=== PATIENT | male | born 1965 | race Caucasian/White ===

== ENCOUNTER 2018-08-03 07:39 | Emergency (ER) | payer OTHER ==
[2018-08-03] MEDS ORDERED: Oseltamivir 75 MG Cap ONE (08:28)
--- NOTE | 2018-08-03 08:42 | EDM.PDOC ---
ED HPI GENERAL MEDICAL PROBLEM - General Stated Complaint: INFLUENZA Time Seen by Provider: 08/03/18 08:00 Source of Information: Reports: Patient History Limitations: Reports: No Limitations - History of Present Illness INITIAL COMMENTS - FREE TEXT/NARRATIVE: According to patient he has been having severe bodyache since yesterday asso with mild nasal congestion. No fever or chills. Mild cough, no productive sputum.No wheezing or shortness of breath. No nausea or vomiting. Pt's was diagnosed with influenza B last Sunday and hence here in the emergency room to have it checked. No other complaints. Onset: Gradual Onset Date: 08/02/18 Duration: Other (unchanged) Location: Reports: Generalized Quality: Reports: Ache Improves with: Reports: None Worsens with: Reports: None Associated Symptoms: Denies: Confusion, Chest Pain, Cough, Diaphoresis, Fever/ Chills, Headaches, Loss of Appetite, Nausea/Vomiting, Rash, Seizure, Shortness of Breath, Syncope, Weakness - Related Data Allergies Allergy/AdvReac Type Severity Reaction Status Date / Time No Known Allergies Allergy Verified 08/03/18 07:55 Home Meds: Home Meds Meloxicam 15 mg PO DAILY 08/03/18 [History] Omeprazole 20 mg PO DAILY 08/03/18 [History] Past Medical History Gastrointestinal History: Reports: GERD Musculoskeletal History: Reports: Back Pain, Chronic, Fracture Neurological History: Reports: Concussion, Headaches, Chronic, Head Trauma - Past Surgical History GI Surgical History: Reports: Hernia Repair/Other Other Musculoskeletal Surgeries/Procedures:: 5 years ago tree fell on him, creating 3 vertibre mid back compression Fxm, shoulder blade and 5 ribs with concussion. Social & Family History - Family History Family Medical History: Noncontributory ED ROS GENERAL - Review of Systems Review Of Systems: See Below Constitutional: Reports: Malaise. Denies: Fever, Chills HEENT: Reports: Rhinitis. Denies: Ear Pain, Throat Pain, Throat Swelling Respiratory: Reports: Cough. Denies: Shortness of Breath, Wheezing, Pleuritic Chest Pain, Sputum Cardiovascular: Denies: Chest Pain, Lightheadedness GI/Abdominal: Denies: Abdominal Pain, Diarrhea, Nausea, Vomiting : Denies: Dysuria, Frequency Musculoskeletal: Denies: Joint Pain, Joint Swelling Skin: Denies: Bruising, Pruritis, Rash Neurological: Denies: Confusion, Dizziness, Headache, Numbness, Tingling ED EXAM, GENERAL - Physical Exam Exam: See Below Exam Limited By: No Limitations General Appearance: Alert, WD/WN, No Apparent Distress Eye Exam: Bilateral Eye: EOMI, PERRL Ears: Normal External Exam, Normal Canal, Hearing Grossly Normal, Normal TMs Ear Exam: Bilateral Ear: Auricle Normal, Canal Normal, TM normal Nose: Normal Inspection, Normal Mucosa, No Blood, Nasal Drainage (minimal clear) Throat/Mouth: Normal Inspection, Normal Lips, Normal Teeth, Normal Gums, Normal Oropharynx, Normal Voice, No Airway Compromise Head: Atraumatic, Normocephalic Neck: Normal Inspection, Supple, Non-Tender, Full Range of Motion Respiratory/Chest: No Respiratory Distress, Lungs Clear, Normal Breath Sounds, No Accessory Muscle Use, Chest Non-Tender Cardiovascular: Normal Peripheral Pulses, Regular Rate, Rhythm, No Edema, No Gallop, No JVD, No Murmur, No Rub GI/Abdominal: Normal Bowel Sounds, Soft, Non-Tender, No Organomegaly, No Distention, No Abnormal Bruit, No Mass Extremities: Normal Inspection, Normal Range of Motion, Non-Tender, Normal Capillary Refill, No Pedal Edema Neurological: Alert, Oriented, CN II-XII Intact, Normal Cognition, Normal Gait, Normal Reflexes, No Motor/Sensory Deficits Course - Vital Signs Text/Narrative:: One day history of bodyache and nasal congestion. Vitals are stable in the emergency room.Pt's flu test is negative. Pt reassured that he probably has viral upper respiratory infection, which does mimic Influenza. Advised rest and hydration. Tylenol 650mg 4 times daily for bodyache. Symptoms should gradually improve. Followup with primary care provider, if he develops fever, chills, productive sputum with wheezing or shortness of breath. - Orders/Labs/Meds Meds: Medications Discontinued Medications Generic Name Dose Route Start Last Admin Trade Name Freq PRN Reason Stop Dose Admin Oseltamivir Phosphate Confirm 08/03/18 08:28 Tamiflu Administered 08/03/18 08:29 Dose 75 mg .ROUTE .STK-MED ONE Departure - Departure Time of Disposition: 08:50 Disposition: Home, Self-Care 01 Condition: Fair Clinical Impression: Viral upper respiratory infection - Discharge Information *PRESCRIPTION DRUG MONITORING PROGRAM REVIEWED*: Not Applicable *COPY OF PRESCRIPTION DRUG MONITORING REPORT IN PATIENT TRISTIAN: Not Applicable Referrals: PCP,Unknown [Primary Care Provider] - Additional Instructions: One day history of bodyache and nasal congestion. Vitals are stable in the emergency room.Pt's flu test is negative. Pt reassured that he probably has viral upper respiratory infection, which does mimic Influenza. Advised rest and hydration. Tylenol 650mg 4 times daily for bodyache. Symptoms should gradually improve. Followup with primary care provider, if he develops fever, chills, productive sputum with wheezing or shortness of breath. - Problem List & Annotations (1) Viral upper respiratory infection SNOMED Code(s): 934333919 Code(s): J06.9 - ACUTE UPPER RESPIRATORY INFECTION, UNSPECIFIED Status: Acute Current Visit: Yes - Problem List Review Problem List Initiated/Reviewed/Updated: Yes - Assessment/Plan Assessment:: Viral URI Plan: One day history of bodyache and nasal congestion. Vitals are stable in the emergency room.Pt's flu test is negative. Pt reassured that he probably has viral upper respiratory infection, which does mimic Influenza. Advised rest and hydration. Tylenol 650mg 4 times daily for bodyache. Symptoms should gradually improve. Followup with primary care provider, if he develops fever, chills, productive sputum with wheezing or shortness of breath.
== END 2018-08-03 08:45 | disposition home or self-care (01) ==
LOC: LB.ED 07:39
DX: J06.9 Acute upper respiratory infection, unspecified (principal)
CPT/HCPCS: 87804; 99283